=== PATIENT | male | born 1980 | race African-American/Black ===

== ENCOUNTER 2020-08-27 10:45 | Emergency (ER) | payer MEDICAID, OTHER ==
[~2020-08-27] VITALS: Ht 177.8 cm; Wt 81.6 kg
[2020-08-27 10:50] VITALS: BP 150/100
[2020-08-27] MEDS ORDERED: SODIUM CHLORIDE 0.9% 1,000 ML IV ONE (11:00)
== END 2020-08-27 11:17 | disposition left against medical advice (07) ==
LOC: EDBD 10:45 → ER 10:45
DX: R10.84 Generalized abdominal pain (principal); F17.210 Nicotine dependence, cigarettes, uncomplicated

== ENCOUNTER 2020-08-28 10:10 | Emergency (ER) | payer MEDICAID ==
[~2020-08-28] VITALS: Ht 182.9 cm; Wt 77.1 kg
[2020-08-28 10:13] VITALS: BP 124/91
[2020-08-28 11:31] LABS: Albumin 3.5 g/dL (3.4-5.0); Calcium 8.3 mg/dL (8.5-10.1); Potassium 3.7 mmol/L (3.5-5.1)
[2020-08-28 11:34] LABS: BUN/Creatinine Ratio 12.5; Basophils # (auto) 0 10 ^3/uL (0-0.2); Basophils % (auto) 0.7 % (0.0-2.0); Bilirubin, Total 0.3 mg/dL (0.2-1.0); Eosinophils # (auto) 0.1 10 ^3/uL (0-0.8); Eosinophils % (auto) 1.2 % (0.0-7.0); Hematocrit 44.3 % (41.0-53.0); Hemoglobin 15.1 g/dL (13.5-17.5); Lymphocytes # (auto) 1.2 10 ^3/uL (0.4-5.4); Lymphocytes % (auto) 22.5 % (10.0-50.0); Mean Corpuscular Hemoglobin 33.9 pg (28.0-32.0); Mean Corpuscular Hgb Conc. 34.1 g/dL (32.0-36.0); Mean Corpuscular Volume 99.4 fL (80.0-100.0); Monocytes # (auto) 0.4 10 ^3/uL (0-1.3); Monocytes % (auto) 6.9 % (0.0-12.0); Neutrophils # (auto) 3.8 10 ^3/uL (1.6-8.6); Neutrophils % (auto) 68.7 % (37.0-80.0); Nucleated Red Blood Cells % 0.1 %; Red Blood Cells 4.46 10^6/uL (4.5-5.90); Red Cell Distribution Width 13.3 % (11.8-14.3); Total Protein 7.1 g/dL (6.4-8.2); White Blood Cell 5.5 10^3/uL (4.4-10.8)
== END 2020-08-28 16:30 | disposition home or self-care (01) ==
LOC: ER 10:10
DX: K59.00 Constipation, unspecified (principal); F17.210 Nicotine dependence, cigarettes, uncomplicated
CPT/HCPCS: 36415; 74176; 80053; 83690; 85025

== ENCOUNTER 2021-05-13 05:29 | Emergency (ER) | payer MEDICAID ==
[~2021-05-13] VITALS: Ht 185.4 cm; Wt 86.2 kg
[2021-05-13 05:29] VITALS: BP 138/94
[2021-05-13] MEDS ORDERED: IBUP800T27 PO (21:06)
[2021-05-13] MEDS ORDERED: AZITTAB PO (21:06)
== END 2021-05-13 06:53 | disposition left against medical advice (07) ==
LOC: ER 05:29
DX: J02.9 Acute pharyngitis, unspecified (principal); Z53.21 Procedure and treatment not carried out due to patient leaving prior to being seen by health care provider

== ENCOUNTER 2021-05-13 18:12 | Emergency (ER) | payer MEDICAID ==
[~2021-05-13] VITALS: Ht 185.4 cm; Wt 86.2 kg
[2021-05-13 20:03] VITALS: BP 124/82
[2021-05-13] MEDS ORDERED: IBUPROFEN 600 MG TAB PO ONE (20:30)
[2021-05-13] MEDS ORDERED: diphenhdrAMINE HCL 25 MG CAP PO ONE (20:30)
[2021-05-13] MEDS ORDERED: IBUP800T27 PO (21:06)
[2021-05-13] MEDS ORDERED: AZITTAB PO (21:06)
== END 2021-05-13 21:22 | disposition home or self-care (01) ==
LOC: ER 18:14
DX: J32.9 Chronic sinusitis, unspecified (principal); F17.210 Nicotine dependence, cigarettes, uncomplicated; Z79.1 Long term (current) use of non-steroidal anti-inflammatories (NSAID); Z79.2 Long term (current) use of antibiotics; Z20.822 Contact with and (suspected) exposure to COVID-19
CPT/HCPCS: 36415; 87426

== ENCOUNTER 2021-12-01 00:39 | Emergency (ER) | payer MEDICAID ==
[~2021-12-01] VITALS: Ht 185.4 cm; Wt 81.0 kg
[~2021-12-01 00:39] MED LIST: AZITTAB PO; IBUP800T27 PO
[2021-12-01] MEDS ORDERED: AZITTAB PO (02:01)
[2021-12-01] MEDS ORDERED: PROM1SOL4 PO (02:01)
[2021-12-01] MEDS ORDERED: MONT-8 PO (02:01)
[2021-12-01 02:59] VITALS: BP 121/88
== END 2021-12-01 03:04 | disposition home or self-care (01) ==
LOC: ER 00:39
DX: J02.9 Acute pharyngitis, unspecified (principal); F17.210 Nicotine dependence, cigarettes, uncomplicated; Z59.00 Homelessness unspecified; Z79.1 Long term (current) use of non-steroidal anti-inflammatories (NSAID); Z79.2 Long term (current) use of antibiotics

== ENCOUNTER 2021-12-08 18:52 | Emergency (ER) | payer MEDICAID ==
[~2021-12-08] VITALS: Ht 185.4 cm; Wt 81.7 kg
[~2021-12-08 18:52] MED LIST changes: +MONT-8 PO; +PROM1SOL4 PO
[2021-12-08 19:54] VITALS: BP 140/92
== END 2021-12-09 02:36 | disposition left against medical advice (07) ==
LOC: ER 18:52
DX: R05.9 Cough, unspecified (principal); Z53.21 Procedure and treatment not carried out due to patient leaving prior to being seen by health care provider; Z20.822 Contact with and (suspected) exposure to COVID-19
CPT/HCPCS: 36415

== ENCOUNTER 2021-12-16 20:20 | Emergency (ER) | payer MEDICAID ==
[~2021-12-16] VITALS: Ht 185.4 cm; Wt 75.0 kg
[2021-12-17 02:51] VITALS: BP 145/91
== END 2021-12-17 05:20 | disposition left against medical advice (07) ==
LOC: ER 20:24
DX: M25.571 Pain in right ankle and joints of right foot (principal); Z53.21 Procedure and treatment not carried out due to patient leaving prior to being seen by health care provider

== ENCOUNTER → 2021-12-29 | Emergency (ER) | payer MEDICAID ==
[~2021-12-29] VITALS: Ht 185.4 cm; Wt 88.0 kg
[2021-12-29 18:17] VITALS: BP 140/90
== END | disposition left against medical advice (07) ==
LOC: ER 17:57
DX: M25.571 Pain in right ankle and joints of right foot (principal); Z53.21 Procedure and treatment not carried out due to patient leaving prior to being seen by health care provider
CPT/HCPCS: 73610

== ENCOUNTER → 2021-12-30 | Emergency (ER) | payer MEDICAID ==
[~2021-12-30] VITALS: Ht 185.4 cm; Wt 81.8 kg
[2021-12-31 00:04] VITALS: BP 130/90
== END | disposition left against medical advice (07) ==
LOC: ER 22:19
DX: M25.571 Pain in right ankle and joints of right foot (principal); Z53.21 Procedure and treatment not carried out due to patient leaving prior to being seen by health care provider

== ENCOUNTER → 2022-01-11 | Emergency (ER) | payer MEDICAID ==
[~2022-01-11] VITALS: Ht 185.4 cm; Wt 75.0 kg
[~2022-01-11] MED LIST changes: +ALBUAER3 IN; +AMOX500T86 PO; +AMOXICILLIN/CLAVULAN 500 MG TAB PO ONE; +PRED20TA2 PO
[2022-01-11 21:02] VITALS: BP 137/86
== END | disposition home or self-care (01) ==
LOC: ER 20:16
DX: J32.9 Chronic sinusitis, unspecified (principal); F17.210 Nicotine dependence, cigarettes, uncomplicated; Z79.2 Long term (current) use of antibiotics; Z79.1 Long term (current) use of non-steroidal anti-inflammatories (NSAID); Z79.899 Other long term (current) drug therapy

== ENCOUNTER 2022-03-14 00:40 | Emergency (ER) | payer MEDICAID ==
[~2022-03-14] VITALS: Ht 185.4 cm; Wt 82.0 kg
[~2022-03-14 00:40] MED LIST changes: -AMOXICILLIN/CLAVULAN 500 MG TAB PO ONE
[2022-03-14 01:03] VITALS: BP 130/97
[2022-03-14] MEDS ORDERED: AMOX-277 PO (01:26)
== END 2022-03-14 01:45 | disposition home or self-care (01) ==
LOC: ER 00:41
DX: J06.9 Acute upper respiratory infection, unspecified (principal); F17.210 Nicotine dependence, cigarettes, uncomplicated; F12.90 Cannabis use, unspecified, uncomplicated; Z59.00 Homelessness unspecified; Z20.822 Contact with and (suspected) exposure to COVID-19
CPT/HCPCS: 36415; 87426; 87804

== ENCOUNTER 2023-06-19 01:55 | Emergency (ER) | payer SELFPAY ==
[~2023-06-19] VITALS: Ht 177.8 cm; Wt 91.0 kg
[~2023-06-19 01:55] MED LIST changes: +AMOX875T4 PO; +IBUP-1456 PO; -IBUP800T27 PO
[2023-06-19 02:13] VITALS: TEMP 98.1
[2023-06-19 02:24] VITALS: PULSE 90; RESP 14; O2SAT 96
[2023-06-19 03:57] VITALS: BP 114/82; PULSE 91; RESP 17; O2SAT 97
== END 2023-06-19 03:58 | disposition home or self-care (01) ==
LOC: EDUNIT# 01:55 → EDBD 01:55 → ER 01:55
DX: S00.03XA Contusion of scalp, initial encounter (principal); F17.210 Nicotine dependence, cigarettes, uncomplicated; F15.90 Other stimulant use, unspecified, uncomplicated; Z59.00 Homelessness unspecified; Z79.899 Other long term (current) drug therapy; W22.8XXA Striking against or struck by other objects, initial encounter; Y93.89 Activity, other specified; Y92.89 Other specified places as the place of occurrence of the external cause; Y99.8 Other external cause status
CPT/HCPCS: 70450

== ENCOUNTER 2024-04-20 20:28 | Emergency (ER) | payer MEDICAID ==
[~2024-04-20] VITALS: Ht 185.4 cm; Wt 83.8 kg
[2024-04-20] MEDS: KETOROLAC TROMETH 60MG/2ML VIAL IM ONE (23:14)
--- NOTE | 2024-04-21 00:54 | ED.PDOC ---
Eye-HPI HPI Comments PATIENT REPORTS HAVING A CHIPPED TOOTH AND PAIN FOR A FEW ,MONTHS, TOP RIGHT MO LAR. DENIES YOUR, CHILLS, NAUSEA, VOMITING, OR THROAT SWELLING Chief Complaint: Tooth Pain Time Seen by MD: 20:52 Primary Care Provider: NONE Reviewed Notes: Nurses Notes, Medications, Allergies Allergies: Coded Allergies: NO KNOWN ALLERGIES (Unverified , 08/27/20) Home Meds Active Scripts Ketorolac Tromethamine (Ketorolac Tromethamine) 10 Mg Tab, 1 TAB PO TID PRN for 3 Days, #9 TAB Prov:CARLITOS NEIL 04/21/24 Gabapentin (Gabapentin) 100 Mg Cap, 1 CAP PO TID for 7 Days, #28 CAP Prov:CARLITOS NEIL 04/21/24 Amoxicillin & Pot Clavulanate (AUGMENTIN TABLET) 875 Mg Tb, 875 MG PO BID for 7 Days, #14 TAB Prov:CARLITOS NEIL 04/21/24 Amoxicillin & Pot Clavulanate (Amoxicillin/Potassium Cla) 875 Mg Tab, 1 TAB PO BID for 7 Days, #14 TAB 0 Refills Prov:EMANUEL JULIEN 03/14/22 Prednisone (Prednisone) 20 Mg Tab, 20 MG PO BID for 4 Days, #8 MG Prov:SANTIAGO MCRAE MD 01/11/22 Albuterol Sulfate (VENTOLIN MDI) 90 Mcg Ih, 90 MCG IN BID for 7 Days, #1 INH Prov:SANTIAGO MCRAE MD 01/11/22 Amoxicillin & Pot Clavulanate (Augmentin) 500 Mg Tab, 1 TAB PO BID for 7 Days, #14 TAB Prov:SANTIAGO MCRAE MD 01/11/22 Azithromycin (Zithromax Z-Morgan) 250 Mg Tab, 250 MG PO DAILY, #6 TAB Prov:MATT HARRIS 12/01/21 Montelukast Sodium (MONTELUKAST SODIUM) 10 Mg Tab, 1 TAB PO DAILY PRN, #30 TAB 5 Refills Prov:MATT HARRIS 12/01/21 Promethazine-Dm (Promethazine Dm 6.25-15 mg/5Ml) 1 Douglas Douglas, 10 DOUGLAS PO TID PRN, #240 ML Prov:MATT HARRIS 12/01/21 Azithromycin (Zithromax Z-Morgan) 250 Mg Tab, 250 MG PO UD, #1 TAB 0 Refills Prov:KATARZYNA OBREGON 05/13/21 Ibuprofen (Ibuprofen) 800 Mg Tab, 400 MG PO Q8HP PRN, #30 TAB Prov:KATARZYNA OBREGON 05/13/21 Information Source: Patient Mode of Arrival: Ambulatory Past Medical History PAST MEDICAL HISTORY: Denies Surgical History: Denies all surgeries Family History Family History: Unknown Social History Smoker: Cigarettes, Less Than 1 Pack/Day Alcohol: Rarely Drugs: Marijuana Lives In: Homeless Constitutional: denies: chills, diaphoresis, fatigue, fever, malaise, sweats, weakness, others EENTM: reports: others (DENTAL PAIN); denies: blurred vision, double vision, ear bleeding, ear discharge, ear drainage, ear pain, ear ringing, eye pain, eye redness, hearing loss, mouth pain, mouth swelling, nasal discharge, nose bleeding, nose congestion, nose pain, photophobia, tearing, throat pain, throat swelling, voice changes Respiratory: denies: cough, hemoptysis, orthopnea, SOB at rest, shortness of breath, SOB with excertion, stridor, wheezing, others Cardiovascular: denies: chest pain, dizzy spells, diaphoresis, Dyspnea on exertion, edema, irregular heart beat, left arm pain, lightheadedness, palpitations, PND, syncope, others Gastrointestinal: denies: abdomen distended, abdominal pain, blood streaked bowels, constipated, diarrhea, dysphagia, difficulty swallowing, hematemesis, melena, nausea, poor appetite, poor fluid intake, rectal bleeding, rectal pain, vomiting, others Genitourinary: denies: burning, dysuria, flank pain, frequency, hematuria, incontinence, penile discharge, penile sore, pain, testicle pain, testicle swelling, urgency, others Neurological: denies: dizziness, fainting, headache, left sided numbness, left sided weakness, numbness, paresthesia, pre-existing deficit, right sided numbness, right sided weakness, seizure, speech problems, tingling, tremors, weakness, others Musculoskeletal: denies: back pain, gout, joint pain, joint swelling, muscle pain, muscle stiffness, neck pain, others Integumetry: denies: bruises, change in color, change in hair/nails, dryness, laceration, lesions, lumps, rash, wounds, others Allergic/Immunocompromised: denies: Difficulty Healing, Frequent Infections, Hives, Itching, others Hematologic/Lymphatic: denies: anemia, blood clots, easy bleeding, easy bruising, swollen glands, others Endocrine: denies: excessive hunger, excessive sweating, excessive thirst, excessive urination, flushing, intolerance to cold, intolerance to heat, unexplained weight gain, unexplained weight loss, others Psychiatric: denies: anxiety, bipolar disorder, depression, hopeless, panic disorder, schizophrenia, sleepless, suicidal, others Physical Exam General Appearance: No Apparent Distress, Normal HEENT: Pharynx Normal, TMs Normal, Other (RIGHT UPPER JAW TOOTH 17. WITH A CRACK AND MODERATE DECAY NO NOTED DRAINAGE OR VISIBLE ABSCESS FACIAL SWELLING OR NECK SWELLING ) Neck: Full Range of Motion, Non-Tender, Normal, Normal Inspection Respiratory: Chest Non-Tender, Lungs Clear, No Accessory Muscle Use, No Respiratory Distress, Normal Breath Sounds Cardiovascular: No Edema, No JVD, No Murmur, No Gallop, Normal Peripheral Pulses, Regular Rate/Rhythm Breast Exam: Deferred Gastrointestinal: No Organomegaly, Non Tender, No Pulsatile Mass, Normal Bowel Sounds, Soft Genitalia: Deferred Pelvic: Deferred Rectal: Deferred Extremities: Normal capillary refill, Normal inspection, Normal range of motion, Non-tender, No pedal edema Musculoskeletal : Apperance: Normal Neurologic: Alert, career services representative II-XII nml as Tested, No Motor Deficits, Normal Affect, Normal Mood, No Sensory Deficits Cerebellar Function: Normal Reflexes: Normal Skin: Dry, Normal Color, Warm Lymphatic: No Adenopathy Was a procedure done? Was a procedure done?: No EENT DIFF Eye: N/A Sore Throat: Colby's Angina, Peritonsillar Abscess, Peritonsillar Cellulitis X-Ray, Labs, Meds, VS Vital Signs Date Time Temp Pulse Resp B/P (MAP) Pulse Ox O2 Delivery O2 Flow Rate FiO2 04/21/24 01:00 97.6 85 18 123/81 (95) 98 97.6 04/21/24 01:00 85 18 98 Room Air 04/20/24 21:41 97.6 74 16 126/89 (101) 96 04/20/24 21:41 74 16 96 Room Air 0 Current Medications Medications (Trade) Dose Ordered Sig/Nanci Route Start Time Stop Time Status Last Admin Ibuprofen (Motrin Tablet) 600 mg ONCE ONCE PO 04/21/24 01:00 04/21/24 01:01 DC 04/21/24 01:23 X-Ray, Labs, Meds, VS Comment PATIENT GIVEN PERCOCET 10 MG P.O., AND MOTRIN 600 MG P.O. REPORTS IMPROVEMENT IN PAIN SYMPTOMS REQUESTING DISCHARGE AT THIS TIME EXPOSURE SENSITIVE TO COLD AND HEAT AND WE WILL TRIAL GABAPENTIN 100 MG T.I.D., IBUPROFEN 800 MG T.I.D. AND AUGMENTIN TWICE DAILY X7 DAYS ADVISED HIM TO CALL DENTAL AND SCHEDULE AN APPOINTMENT FOR COMPLETE RESOLUTION. ER RETURN PRECAUTIONS GIVEN PATIENT INDICATES UNDERSTANDING AND AGREES WITH DISCHARGE PLAN OF CARE. Time of 1ST Reevaluation: 00:50 Reevaluation 1ST: Improved Patient Education/Counseling: Diagnosis, Treatment, Prognosis, Need For Follow Up Family Education/Counseling: No Family Present Departure 1 Departure Time of Disposition: 00:55 Impression: Primary Impression: Dental infection Disposition: HOME / SELF CARE / HOMELESS Condition: Stable e-Prescriptions Ketorolac Tromethamine (Ketorolac Tromethamine) 10 Mg Tab 1 TAB PO TID PRN for 3 Days, #9 TAB Prov: CARLITOS NEIL 04/21/24 Gabapentin (Gabapentin) 100 Mg Cap 1 CAP PO TID for 7 Days, #28 CAP Prov: CARLITOS NEIL 04/21/24 Amoxicillin & Pot Clavulanate (AUGMENTIN TABLET) 875 Mg Tb 875 MG PO BID for 7 Days, #14 TAB Prov: CARLITOS NEIL 04/21/24 Discharged With: Friend Critical Care Note Critical Care Time?: No Stability Stability form required: No CARLITOS NEIL Apr 21, 2024 00:54
[2024-04-21] MEDS ORDERED: AUG875T PO (00:58)
[2024-04-21] MEDS ORDERED: KETO10TA PO (00:58)
[2024-04-21] MEDS ORDERED: GABA-1308 PO (00:58)
[2024-04-21 01:00] VITALS: BP 123/81; PULSE 85; RESP 18; TEMP 97.6; O2SAT 98
[2024-04-21] MEDS: OXYCODONE W/ ACETAMINOPHEN 5/325MG TABLET PO ONE (01:00)
[2024-04-21] MEDS: IBUPROFEN 600 MG TAB PO ONE (01:23)
== END 2024-04-21 01:34 | disposition home or self-care (01) ==
LOC: ER 20:28
DX: K04.7 Periapical abscess without sinus (principal); F17.210 Nicotine dependence, cigarettes, uncomplicated; Z59.00 Homelessness unspecified; Z79.899 Other long term (current) drug therapy

== ENCOUNTER 2024-05-14 21:29 | Emergency (ER) | payer MEDICAID ==
[~2024-05-14] VITALS: Ht 185.4 cm; Wt 83.0 kg
[2024-05-14 21:37] VITALS: BP 146/87; PULSE 101; RESP 17; TEMP 98.2; O2SAT 98
[2024-05-14] MEDS ORDERED: IBUP-1456 PO (22:25)
[2024-05-14] MEDS ORDERED: CLIN1CAP70 PO (22:25)
--- NOTE | 2024-05-14 22:25 | ED.PDOC ---
Eye-HPI HPI Comments 43 YEAR OLD MALE PRESENTS TO ER WITH COMPLAINTS OF TOOTHACHE X 3 MONTHS. PATIENT REPORTS HE HAS BEEN EXPERIENCING INTERMITTENT LEFT UPPER TOOTHACHE X 3 MONTHS THAT GOT WORSE X1 MONTH. HE RATES HIS CURRENT LEFT UPPER TOOTHACHE PAIN AN 8/10 WITHOUT RADIATION. DENIES USE OF MEDICATIONS FOR CURRENT SYMPTOMS. PATIENT STATES HE WAS SUPPOSED TO FOLLOW UP WITH A DENTIST LAST SUNDAY BUT MISSED HIS APPOINTMENT AND IS GOING TO CONTACT HIS DENTIST AGAIN THIS WEEK FOR FOLLOW UP. DENIES FEVER, BODY ACHES, CHILLS, HEADACHE, FACIAL SWELLING OR ANY FURTHER SYMPTOMS/COMPLAINTS Chief Complaint: Tooth Pain Time Seen by MD: 21:42 Primary Care Provider: UNKNOWN Reviewed Notes: Nurses Notes, Medications, Allergies Allergies: Coded Allergies: NO KNOWN ALLERGIES (Unverified , 08/27/20) Home Meds Active Scripts Ibuprofen (Ibuprofen) 800 Mg Tab, 1 TAB PO TID PRN, #30 TAB 0 Refills Prov:EMANUEL JULIEN 05/14/24 Clindamycin Hcl (Clindamycin Hcl) 300 Mg Cap, 300 MG PO QID for 7 Days, #28 CAP 0 Refills Prov:EMANUEL JULIEN 05/14/24 Amoxicillin & Pot Clavulanate (Amoxicillin/Potassium Cla) 875 Mg Tab, 1 TAB PO BID for 7 Days, #14 TAB 0 Refills Prov:EMANUEL JULIEN 03/14/22 Prednisone (Prednisone) 20 Mg Tab, 20 MG PO BID for 4 Days, #8 MG Prov:SANTIAGO MCRAE MD 01/11/22 Albuterol Sulfate (VENTOLIN MDI) 90 Mcg Ih, 90 MCG IN BID for 7 Days, #1 INH Prov:SANTIAGO MCRAE MD 01/11/22 Amoxicillin & Pot Clavulanate (Augmentin) 500 Mg Tab, 1 TAB PO BID for 7 Days, #14 TAB Prov:SANTIAGO MCRAE MD 01/11/22 Azithromycin (Zithromax Z-Morgan) 250 Mg Tab, 250 MG PO DAILY, #6 TAB Prov:MATT HARRIS 12/01/21 Montelukast Sodium (MONTELUKAST SODIUM) 10 Mg Tab, 1 TAB PO DAILY PRN, #30 TAB 5 Refills Prov:MATT HARRIS 12/01/21 Promethazine-Dm (Promethazine Dm 6.25-15 mg/5Ml) 1 Douglas Douglas, 10 DOUGLAS PO TID PRN, #240 ML Prov:MATT HARRIS 12/01/21 Azithromycin (Zithromax Z-Morgan) 250 Mg Tab, 250 MG PO UD, #1 TAB 0 Refills Prov:KATARZYNA OBREGON 05/13/21 Ibuprofen (Ibuprofen) 800 Mg Tab, 400 MG PO Q8HP PRN, #30 TAB Prov:KATARZYNA OBREGON 05/13/21 Information Source: Patient Mode of Arrival: Ambulatory Past Medical History PAST MEDICAL HISTORY: Denies Surgical History: Denies all surgeries Family History Family History: Unknown Social History Smoker: Cigarettes, Less Than 1 Pack/Day Alcohol: Rarely Drugs: Marijuana Lives In: Home Constitutional: denies: chills, diaphoresis, fatigue, fever, malaise, sweats, weakness, others EENTM: reports: others ( STATED IN HPI) Respiratory: denies: cough, hemoptysis, orthopnea, SOB at rest, shortness of breath, SOB with excertion, stridor, wheezing, others Cardiovascular: denies: chest pain, dizzy spells, diaphoresis, Dyspnea on exertion, edema, irregular heart beat, left arm pain, lightheadedness, palpitations, PND, syncope, others Gastrointestinal: denies: abdomen distended, abdominal pain, blood streaked bowels, constipated, diarrhea, dysphagia, difficulty swallowing, hematemesis, melena, nausea, poor appetite, poor fluid intake, rectal bleeding, rectal pain, vomiting, others Genitourinary: denies: burning, dysuria, flank pain, frequency, hematuria, incontinence, penile discharge, penile sore, pain, testicle pain, testicle swelling, urgency, others Neurological: denies: dizziness, fainting, headache, left sided numbness, left sided weakness, numbness, paresthesia, pre-existing deficit, right sided numbness, right sided weakness, seizure, speech problems, tingling, tremors, weakness, others Musculoskeletal: denies: back pain, gout, joint pain, joint swelling, muscle pain, muscle stiffness, neck pain, others Integumetry: denies: bruises, change in color, change in hair/nails, dryness, laceration, lesions, lumps, rash, wounds, others Allergic/Immunocompromised: denies: Difficulty Healing, Frequent Infections, Hives, Itching, others Hematologic/Lymphatic: denies: anemia, blood clots, easy bleeding, easy bruising, swollen glands, others Endocrine: denies: excessive hunger, excessive sweating, excessive thirst, excessive urination, flushing, intolerance to cold, intolerance to heat, une xplained weight gain, unexplained weight loss, others Psychiatric: denies: anxiety, bipolar disorder, depression, hopeless, panic disorder, schizophrenia, sleepless, suicidal, others Physical Exam General Appearance: No Apparent Distress HEENT: PERRL/EOMI, Other (BROKEN LEFT UPPER TOOTH 24 AND 25 NOTED WITH MILD GUM SWELLING/ERYTHEMA NOTED WITHOUT BLEEDING/DRAINAGE. OVERALL VERY POOR DENTAL HYGIENE NOTED. NO FACIAL SWELLING/SKIN CHANGES NOTED) Neck: Full Range of Motion, Non-Tender, Normal Respiratory: Chest Non-Tender, Lungs Clear, No Accessory Muscle Use, No Respiratory Distress, Normal Breath Sounds Cardiovascular: No Murmur, No Gallop, Regular Rate/Rhythm Breast Exam: Deferred Gastrointestinal: NOT DONE Genitalia: Deferred Pelvic: Deferred Rectal: Deferred Extremities: Normal capillary refill, Normal range of motion Neurologic: Alert, No Motor Deficits, Normal Affect, Normal Mood, No Sensory Deficits Cerebellar Function: Normal Reflexes: Normal Skin: Dry, Normal Color, Warm Lymphatic: No Adenopathy Was a procedure done? Was a procedure done?: No Sedation Sedation?: No EENT DIFF Eye: N/A Mouth: Thrush, Other (DENTAL ABSCESS, FELISA'S ANGINA) X-Ray, Labs, Meds, VS Vital Signs Date Time Temp Pulse Resp B/P (MAP) Pulse Ox O2 Delivery O2 Flow Rate FiO2 05/14/24 21:37 98.2 101 17 146/87 (106) 98 HURRICANE SPRAY ORDERED, PATIENT EDUCATED ON PROPER USE/DOSAGE SMOKING CESSATION DISCUSSED AND ADVISED PREVIOUS CHART VISIT REVIEWED ADVISED TO FOLLOW UP WITH PCP AND DENTIST IN 1-2 DAYS PATIENT VERBALIZED UNDERSTANDING AND AGREEABLE WITH CURRENT PLAN OF CARE ADVISED TO RETURN TO ER IMMEDIATELY IF SYMPTOMS WORSEN Time of 1ST Reevaluation: 22:02 Reevaluation 1ST: N/A Patient Education/Counseling: Diagnosis, Treatment, Prognosis, Need For Follow Up Family Education/Counseling: No Family Present Departure 1 Departure Time of Disposition: 22:22 Impression: Primary Impression: Broken teeth Additional Impression: Dental infection Disposition: HOME / SELF CARE / HOMELESS Condition: Stable e-Prescriptions Ibuprofen (Ibuprofen) 800 Mg Tab 1 TAB PO TID PRN, #30 TAB 0 Refills Prov: EMANUEL JULIEN 05/14/24 Clindamycin Hcl (Clindamycin Hcl) 300 Mg Cap 300 MG PO QID for 7 Days, #28 CAP 0 Refills Prov: EMANUEL JULIEN 05/14/24 Discharged With: Self Critical Care Note Critical Care Time?: No Stability Stability form required: No Heart Score Heart Score: Heart Score Response (Comments) Value History N/A 0 EKG N/A 0 Age N/A 0 Risk Factors N/A 0 Troponin N/A 0 Total 0 EMANUEL JULIEN May 14, 2024 22:25
[2024-05-14] MEDS: BENZOCAINE (DENTAL) 20 % SPRAY 60ML MT ONE (22:36)
== END 2024-05-14 22:42 | disposition home or self-care (01) ==
LOC: ER 21:29
DX: S02.5XXA Fracture of tooth (traumatic), initial encounter for closed fracture (principal); K04.7 Periapical abscess without sinus; F12.90 Cannabis use, unspecified, uncomplicated; F17.210 Nicotine dependence, cigarettes, uncomplicated; Z79.52 Long term (current) use of systemic steroids; X58.XXXA Exposure to other specified factors, initial encounter; Y93.89 Activity, other specified; Y92.89 Other specified places as the place of occurrence of the external cause; Y99.8 Other external cause status

== ENCOUNTER 2024-08-05 22:14 | Emergency (ER) | payer MEDICAID ==
[~2024-08-05] VITALS: Ht 185.4 cm; Wt 74.2 kg
[~2024-08-05 22:14] MED LIST changes: +CLIN1CAP70 PO
[2024-08-05 23:34] VITALS: BP 117/78; PULSE 104; RESP 16; TEMP 97.5; O2SAT 97
[2024-08-05] MEDS ORDERED: AZIT-43 PO (23:44)
[2024-08-05] MEDS ORDERED: ACET500T58 PO (23:44)
[2024-08-05] MEDS ORDERED: PRED20TA2 PO (23:44)
--- NOTE | 2024-08-05 23:44 | ED.PDOC ---
History of Present Illness HPI Comments 43-year-old male presents to ER with complaints of cough x3 days. Patient reports he has been experiencing cough, congestion and sore throat x3 days. Notes that his cough was initially dry but turned productive with yellow phlegm x1 day. Denies use of medications for current symptoms and [facility] arrival, with steady gait, in no distress. Denies fever, body aches, chills, night sweats, shortness of breath, chest pain, hemoptysis or any further symptoms/complaints Chief Complaint: Flu like Time Seen by MD: 22:21 Primary Care Provider: UNKNOWN Reviewed Notes: Nurses Notes, Medications, Allergies Information Source: Patient Past Medical History PAST MEDICAL HISTORY: Denies Surgical History: PTCA Family History Family History: Unknown Social History Smoker: Cigarettes, Less Than 1 Pack/Day Alcohol: Rarely Drugs: Marijuana Lives In: Home Constitutional: No Symptoms Reported EENTM: See HPI Respiratory: See HPI Cardiovascular: No Symptoms Reported Gastrointestinal: No Symptoms Reported Genitourinary: No Symptoms Reported Neurological: No Symptoms Reported Musculoskeletal: No Symptoms Reported Integumentary: No Symptoms Reported Allergic/Immunocompromised: others (DENIES) Hematologic/Lymphatic: No Symptoms Reported Endocrine: No Symptoms Reported Psychiatric: No symptoms Reported Physical Exam General Appearance: No Apparent Distress HEENT: PERRL/EOMI, Pharyngeal Erythema (MILD TONSILLAR SWELLING/ERYTHEMA NOTED BILATERALLY WITHOUT EXUDATES. UVULA-NORMAL), TMs Normal Neck: Full Range of Motion, Non-Tender, Normal Respiratory: Chest Non-Tender, Lungs Clear, No Accessory Muscle Use, No Respiratory Distress, Normal Breath Sounds Cardiovascular: No Murmur, No Gallop, Regular Rate/Rhythm Breast Exam: Deferred Gastrointestinal: NOT DONE Genitalia: Deferred Pelvic: Deferred Rectal: Deferred Extremities: Normal capillary refill, Normal range of motion Neurologic: Alert, metal finisher II-XII nml as Tested, No Motor Deficits, Normal Affect, Normal Mood, No Sensory Deficits Cerebellar Function: Normal Reflexes: Normal Skin: Dry, Normal Color, Warm Lymphatic: No Adenopathy Was a procedure done? Was a procedure done?: No Sedation Sedation?: No Fever Differential Dx Differential Diagnosis: Pneumonia, Pulmonary Embolus, Sepsis, Pharyngitis X-Ray, Labs, Meds, VS Vital Signs Date Time Temp Pulse Resp B/P (MAP) Pulse Ox O2 Delivery O2 Flow Rate FiO2 5/27/25 23:34 97.5 104 16 117/78 (91) 97 97.5 08/05/24 23:34 Room Air* 0 21 08/05/24 22:25 97.5 104 16 117/78 (91) 97 97.5 Patient tolerating p.o. intake well and in no distress during ER visit/prior to discharge Smoking/cannabis cessation discussed and advised Advised to drink plenty of fluids Advised to follow up with PCP in 1-2 days Patient verbalized understanding and agreeable with current plan of care Advised to return to ER immediately if symptoms worsen Time of 1ST Reevaluation: 23:20 Reevaluation 1ST: N/A Patient Education/Counseling: Diagnosis, Treatment, Prognosis, Need For Follow Up Family Education/Counseling: No Family Present Departure 1 Departure Time of Disposition: 23:42 Impression: Primary Impression: Upper respiratory infection Qualified Codes: J06.9 - Acute upper respiratory infection, unspecified Disposition: HOME / SELF CARE / HOMELESS Condition: Stable e-Prescriptions Prednisone (Prednisone) 20 Mg Tab 20 MG PO BID for 5 Days, #10 TAB 0 Refills Prov: EMANUEL JULIEN 08/05/24 Acetaminophen (Acetaminophen) 500 Mg Tab 500 MG PO Q4HPRN, #30 TAB 0 Refills Prov: EMANUEL JULIEN 08/05/24 Azithromycin (Azithromycin) 250 Mg Tab 250 MG PO DAILY MDD 500 for 5 Days, #6 TAB 0 Refills 2 TABLETS ORALLY ON DAY ONE, THEN 1 TABLET ORALLY DAILY FOR 4 DAYS Prov: EMANUEL JULIEN 08/05/24 Discharged With: Self Critical Care Note Critical Care Time?: No Stability Stability form required: No Heart Score Heart Score: Heart Score Response (Comments) Value History N/A 0 EKG N/A 0 Age N/A 0 Risk Factors N/A 0 Troponin N/A 0 Total 0 EMANUEL JULIEN August 05, 2024 23:44
== END 2024-08-06 | disposition home or self-care (01) ==
LOC: ER 22:14
DX: J06.9 Acute upper respiratory infection, unspecified (principal); F12.90 Cannabis use, unspecified, uncomplicated; F17.210 Nicotine dependence, cigarettes, uncomplicated

== ENCOUNTER 2024-08-16 23:48 | Emergency (ER) | payer MEDICAID ==
[~2024-08-16] VITALS: Ht 185.4 cm; Wt 77.0 kg
[~2024-08-16 23:48] MED LIST changes: +ACET500T58 PO; +AZIT-43 PO
[2024-08-17 00:32] VITALS: BP 138/95; PULSE 97; RESP 16; TEMP 98.4; O2SAT 99
[2024-08-17] MEDS ORDERED: HYDROcodone-ACET 10/325MG TAB PO ONE (00:45)
--- NOTE | 2024-08-17 01:05 | DVH ---
EXAM: XY R KNEE 3V XRAY HISTORY: RIGHT KNEE PAIN COMPARISON: None TECHNIQUE: 3 views of the right knee were performed. FINDINGS: No acute fracture is identified about the right knee. No significant joint space narrowing. No evid ence of significant joint effusion. IMPRESSION: No acute osseous abnormalities of the right knee.
[2024-08-17] MEDS ORDERED: DICL50TA4 PO (01:43)
--- NOTE | 2024-08-17 01:44 | ED.PDOC ---
Back pain HPI HPI Comments C/C: RIGHT KNEE PAIN FOR THE PAST 2-3 DAYS. DENIES TRAUMA OR INJURY. PATIENT STATES THAT IT FEELS LIKE HIS LEG IS GOING TO GIVE OUT WHEN HE WALKS. ALL VSS Chief Complaint: Lower Extremity Time Seen by MD: 23:52 Primary Care Provider: UNKNOWN Reviewed Notes: Nurses Notes, Medications, Allergies Allergies: Coded Allergies: NO KNOWN ALLERGIES (Unverified , 08/27/20) Home Meds Active Scripts Prednisone (Prednisone) 20 Mg Tab, 20 MG PO BID for 5 Days, #10 TAB 0 Refills Prov:EMANUEL JULIEN 08/05/24 Acetaminophen (Acetaminophen) 500 Mg Tab, 500 MG PO Q4HPRN, #30 TAB 0 Refills Prov:EMANUEL JULIEN 08/05/24 Azithromycin (Azithromycin) 250 Mg Tab, 250 MG PO DAILY MDD 500 for 5 Days, #6 TAB 0 Refills 2 TABLETS ORALLY ON DAY ONE, THEN 1 TABLET ORALLY DAILY FOR 4 DAYS Prov:EMANUEL JULIEN 08/05/24 Ibuprofen (Ibuprofen) 800 Mg Tab, 1 TAB PO TID PRN, #30 TAB 0 Refills Prov:EMANUEL JULIEN 05/14/24 Clindamycin Hcl (Clindamycin Hcl) 300 Mg Cap, 300 MG PO QID for 7 Days, #28 CAP 0 Refills Prov:EMANUEL JULIEN 05/14/24 Amoxicillin & Pot Clavulanate (Amoxicillin/Potassium Cla) 875 Mg Tab, 1 TAB PO BID for 7 Days, #14 TAB 0 Refills Prov:EMANUEL JULIEN 03/14/22 Prednisone (Prednisone) 20 Mg Tab, 20 MG PO BID for 4 Days, #8 MG Prov:SANTIAGO MCRAE MD 01/11/22 Albuterol Sulfate (VENTOLIN MDI) 90 Mcg Ih, 90 MCG IN BID for 7 Days, #1 INH Prov:SANTIAGO MCRAE MD 01/11/22 Amoxicillin & Pot Clavulanate (Augmentin) 500 Mg Tab, 1 TAB PO BID for 7 Days, #14 TAB Prov:SANTIAGO MCRAE MD 01/11/22 Azithromycin (Zithromax Z-Morgan) 250 Mg Tab, 250 MG PO DAILY, #6 TAB Prov:MATT HARRIS 12/01/21 Montelukast Sodium (MONTELUKAST SODIUM) 10 Mg Tab, 1 TAB PO DAILY PRN, #30 TAB 5 Refills Prov:MATT HARRIS 12/01/21 Promethazine-Dm (Promethazine Dm 6.25-15 mg/5Ml) 1 Douglas Douglas, 10 DOUGLAS PO TID PRN, #240 ML Prov:MATT HARRIS 12/01/21 Azithromycin (Zithromax Z-Morgan) 250 Mg Tab, 250 MG PO UD, #1 TAB 0 Refills Prov:KATARZYNA OBREGON 05/13/21 Ibuprofen (Ibuprofen) 800 Mg Tab, 400 MG PO Q8HP PRN, #30 TAB Prov:KATARZYNA OBREGON 05/13/21 Information Source: Patient Mode of Arrival: Ambulatory Past Medical History PAST MEDICAL HISTORY: Denies Surgical History: PTCA Family History Family History: Unknown Social History Smoker: Cigarettes, Less Than 1 Pack/Day Alcohol: Rarely Drugs: Marijuana Lives In: Home Constitutional: denies: chills, diaphoresis, fatigue, fever, malaise, sweats, weakness, others EENTM: denies: blurred vision, double vision, ear bleeding, ear discharge, ear drainage, ear pain, ear ringing, eye pain, eye redness, hearing loss, mouth pain, mouth swelling, nasal discharge, nose bleeding, nose congestion, nose pain, photophobia, tearing, throat pain, throat swelling, voice changes, others Respiratory: denies: cough, hemoptysis, orthopnea, SOB at rest, shortness of breath, SOB with excertion, stridor, wheezing, others Cardiovascular: denies: chest pain, dizzy spells, diaphoresis, Dyspnea on exertion, edema, irregular heart beat, left arm pain, lightheadedness, palpitations, PND, syncope, others Gastrointestinal: denies: abdomen distended, abdominal pain, blood streaked bowels, constipated, diarrhea, dysphagia, difficulty swallowing, hematemesis, melena, nausea, poor appetite, poor fluid intake, rectal bleeding, rectal pain, vomiting, others Genitourinary: denies: burning, dysuria, flank pain, frequency, hematuria, i ncontinence, penile discharge, penile sore, pain, testicle pain, testicle swelling, urgency, others Neurological: denies: dizziness, fainting, headache, left sided numbness, left sided weakness, numbness, paresthesia, pre-existing deficit, right sided numbness, right sided weakness, seizure, speech problems, tingling, tremors, weakness, others Musculoskeletal: reports: joint pain, joint swelling; denies: back pain, gout, muscle pain, muscle stiffness, neck pain, others Integumetry: denies: bruises, change in color, change in hair/nails, dryness, laceration, lesions, lumps, rash, wounds, others Allergic/Immunocompromised: denies: Difficulty Healing, Frequent Infections, Hives, Itching, others Hematologic/Lymphatic: denies: anemia, blood clots, easy bleeding, easy bruising, swollen glands, others Endocrine: denies: excessive hunger, excessive sweating, excessive thirst, excessive urination, flushing, intolerance to cold, intolerance to heat, unexplained weight gain, unexplained weight loss, others Psychiatric: denies: anxiety, bipolar disorder, depression, hopeless, panic disorder, schizophrenia, sleepless, suicidal, others Physical Exam General Appearance: No Apparent Distress, Normal HEENT: Pharynx Normal Neck: Full Range of Motion, Non-Tender Respiratory: Lungs Clear, No Respiratory Distress, Normal Breath Sounds Cardiovascular: No Murmur, Normal Peripheral Pulses, Regular Rate/Rhythm Breast Exam: Deferred Gastrointestinal: Non Tender, Soft Genitalia: Deferred Pelvic: Deferred Rectal: Deferred Extremities: No calf tenderness, Normal capillary refill, Normal inspection, N ormal range of motion, Non-tender, No pedal edema Musculoskeletal : Location: Left Extremity Location: Knee (LATERAL TENDERNESS ON PALPATION NO NOTED CREPITUS, EDEMA NEGATIVE BALLOTTEMENT NEGATIVE MAGNUS AND NEGATIVE DRAWER TEST STRENGTH SENSORY MOTION INTACT POSITIVE PEDAL PULSE NOTED EXTERNAL TRAUMA) Apperance: Normal Neurologic: Alert, quality assurance supervisor trim II-XII nml as Tested, No Motor Deficits, Normal Affect, Normal Mood, No Sensory Deficits Cerebellar Function: Normal Reflexes: Normal Skin: Dry, Normal Color, Warm Lymphatic: No Adenopathy Was a procedure done? Was a procedure done?: No Back Pain Differential Dx Differential Diagnosis: Fracture, Musculoskeletal Pain X-Ray, Labs, Meds, VS Vital Signs Date Time Temp Pulse Resp B/P (MAP) Pulse Ox O2 Delivery O2 Flow Rate FiO2 08/17/24 00:32 98.4 97 16 138/95 (109) 99 98.4 X-Ray, Labs, Meds, VS Comment LEFT KNEE X-RAY SHOWS NO ACUTE FRACTURES DISLOCATIONS OR OSSEOUS LESIONS. SLIGHTLY LEFT KNEE STRAIN. ADVISED ON RICE. SCRIPT TRIAL OF DICLOFENAC ADVISED TO TAKE MEDICATIONS PRESCRIBED SIDE EFFECTS DISCUSSED. FOLLOW UP WITH YOUR PCP IN 2-3 DAYS NECESSARY CONSIDER FURTHER TESTING SUCH MRI SINCE PERSIST. ER RETURN PRECAUTIONS GIVEN PATIENT INDICATES UNDERSTANDING AND AGREES WITH DISCHARGE PLAN OF CARE. Time of 1ST Reevaluation: 00:00 Reevaluation 1ST: Unchanged Time of 2ND Reevaluation: 01:42 Reevaluation 2ND: Improved Patient Education/Counseling: Diagnosis, Treatment, Prognosis, Need For Follow Up Family Education/Counseling: No Family Present Departure 1 Departure Time of Disposition: 01:42 Impression: Primary Impression: Strain of knee and leg, left Qualified Codes: S86.912A - Strain of unspecified muscle(s) and tendon(s) at lower leg level, left leg, initial encounter Disposition: 01 HOME / SELF CARE / HOMELESS Condition: Stable e-Prescriptions Diclofenac Sodium (Diclofenac Sodium Ec) 50 Mg Tab 1 TAB PO BID PRN for 7 Days, #14 TAB Prov: CARLITOS NEIL 08/17/24 Discharged With: Self Critical Care Note Critical Care Time?: No Stability Stability form required: CARLITOS Tesfaye Aug 17, 2024 01:44
== END 2024-08-17 07:03 | disposition home or self-care (01) ==
LOC: ER 23:51
DX: S86.912A Strain of unspecified muscle(s) and tendon(s) at lower leg level, left leg, initial encounter (principal); M25.561 Pain in right knee; F17.210 Nicotine dependence, cigarettes, uncomplicated; F10.90 Alcohol use, unspecified, uncomplicated; F19.90 Other psychoactive substance use, unspecified, uncomplicated; Z79.52 Long term (current) use of systemic steroids; Z79.899 Other long term (current) drug therapy; Z98.890 Other specified postprocedural states; X58.XXXA Exposure to other specified factors, initial encounter; Y93.89 Activity, other specified; Y92.89 Other specified places as the place of occurrence of the external cause; Y99.8 Other external cause status; Y90.9 Presence of alcohol in blood, level not specified
CPT/HCPCS: 73562

== ENCOUNTER 2024-08-24 22:10 | Emergency (ER) | payer MEDICAID ==
[~2024-08-24 22:10] MED LIST changes: +DICL50TA4 PO
== END 2024-08-24 23:19 | disposition left against medical advice (07) ==
LOC: ER 22:10
DX: S89.92XA Unspecified injury of left lower leg, initial encounter (principal); Z53.21 Procedure and treatment not carried out due to patient leaving prior to being seen by health care provider; X58.XXXA Exposure to other specified factors, initial encounter; Y93.89 Activity, other specified; Y92.89 Other specified places as the place of occurrence of the external cause; Y99.8 Other external cause status

== ENCOUNTER 2024-09-19 15:41 | Emergency (ER) | payer MEDICAID ==
[~2024-09-19] VITALS: Ht 185.4 cm; Wt 77.9 kg
[~2024-09-19 15:41] MED LIST changes: -DICL50TA4 PO
--- NOTE | 2024-09-19 16:14 | ED.PDOC ---
History of Present Illness HPI Comments A 44 YEAR OLD MALE PRESENTS TO THE ED WITH COMPLAINT OF REQUEST FOR ABRASION OF PENILE REGION. PATIENT STATES HE ALSO HAS AN ABRASION ON HIS GENITAL REGION DUE TO HIS BASILIA ZIPPER AND WOULD LIKE TO HAVE THIS ABRASION EVALUATED. PATIENT DENIES FEVER, CHILLS, SHORTNESS OF BREATH, CHEST PAIN, ABDOMINAL PAIN, NAUSEA, VOMITING, HEADACHE, OR OTHER COMPLAINTS. NO OTHER SYMPTOMS OR MODIFYING FACTORS AT THIS TIME. PATIENT IS ALERT, ORIENTED X 4, AND HAS STEADY GAIT. Chief Complaint: WOUND RECHECK Time Seen by MD: 16:02 Primary Care Provider: UNKNOWN Reviewed Notes: Nurses Notes, Medications, Allergies Allergies: Coded Allergies: NO KNOWN ALLERGIES (Unverified , 08/27/20) Home Meds Active Scripts Naproxen (Naproxen) 500 Mg Tab, 500 MG PO BID, #24 TAB Prov:DION LINDSEY 09/19/24 Cephalexin Monohydrate (Cephalexin) 500 Mg Cap, 1 CAP PO QID, #28 CAP Prov:DION LINDSEY 09/19/24 Prednisone (Prednisone) 20 Mg Tab, 20 MG PO BID for 5 Days, #10 TAB 0 Refills Prov:EMANUEL JULIEN 08/05/24 Acetaminophen (Acetaminophen) 500 Mg Tab, 500 MG PO Q4HPRN, #30 TAB 0 Refills Prov:EMANUEL JULIEN 08/05/24 Azithromycin (Azithromycin) 250 Mg Tab, 250 MG PO DAILY MDD 500 for 5 Days, #6 TAB 0 Refills 2 TABLETS ORALLY ON DAY ONE, THEN 1 TABLET ORALLY DAILY FOR 4 DAYS Prov:EMANUEL JULIEN 08/05/24 Ibuprofen (Ibuprofen) 800 Mg Tab, 1 TAB PO TID PRN, #30 TAB 0 Refills Prov:EMANUEL JULIEN 05/14/24 Clindamycin Hcl (Clindamycin Hcl) 300 Mg Cap, 300 MG PO QID for 7 Days, #28 CAP 0 Refills Prov:EMANUEL JULIEN 05/14/24 Amoxicillin & Pot Clavulanate (Amoxicillin/Potassium Cla) 875 Mg Tab, 1 TAB PO BID for 7 Days, #14 TAB 0 Refills Prov:EMANUEL JULIEN 03/14/22 Prednisone (Prednisone) 20 Mg Tab, 20 MG PO BID for 4 Days, #8 MG Prov:SANTIAGO MCRAE MD 01/11/22 Albuterol Sulfate (VENTOLIN MDI) 90 Mcg Ih, 90 MCG IN BID for 7 Days, #1 INH Prov:SANTIAGO MCRAE MD 01/11/22 Amoxicillin & Pot Clavulanate (Augmentin) 500 Mg Tab, 1 TAB PO BID for 7 Days, #14 TAB Prov:SANTIAGO MCRAE MD 01/11/22 Azithromycin (Zithromax Z-Morgan) 250 Mg Tab, 250 MG PO DAILY, #6 TAB Prov:MATT HARRIS 12/01/21 Montelukast Sodium (MONTELUKAST SODIUM) 10 Mg Tab, 1 TAB PO DAILY PRN, #30 TAB 5 Refills Prov:MATT HARRIS 12/01/21 Promethazine-Dm (Promethazine Dm 6.25-15 mg/5Ml) 1 Douglas Douglas, 10 DOUGLAS PO TID PRN, #240 ML Prov:MATT HARRIS 12/01/21 Azithromycin (Zithromax Z-Morgan) 250 Mg Tab, 250 MG PO UD, #1 TAB 0 Refills Prov:KATARZYNA OBREGON 05/13/21 Ibuprofen (Ibuprofen) 800 Mg Tab, 400 MG PO Q8HP PRN, #30 TAB Prov:KATARZYNA OBREGON 05/13/21 Information Source: Patient Mode of Arrival: Ambulatory Severity: Mild Timing: Days Duration: Since onset, Days Prehospital treatment: None Medication Refill: For: Other (PENILE ABRASION) Past Medical History PAST MEDICAL HISTORY: Denies Surgical History: PTCA Family History Family History: Reviewed,noncontributory to illness Social History Smoker: Cigarettes, Less Than 1 Pack/Day Alcohol: Rarely Drugs: Marijuana Lives In: Home Constitutional: denies: chills, diaphoresis, fatigue, fever, malaise, sweats, weakness, others EENTM: denies: blurred vision, double vision, ear bleeding, ear discharge, ear drainage, ear pain, ear ringing, eye pain, eye redness, hearing loss, mouth pain, mouth swelling, nasal discharge, nose bleeding, nose congestion, nose pain, photophobia, tearing, throat pain, throat swelling, voice changes, others Respiratory: denies: cough, hemoptysis, orthopnea, SOB at rest, shortness of breath, SOB with excertion, stridor, wheezing, others Cardiovascular: denies: chest pain, dizzy spells, diaphoresis, Dyspnea on exertion, edema, irregular heart beat, left arm pain, lightheadedness, palpitations, PND, syncope, others Gastrointestinal: denies: abdomen distended, abdominal pain, blood streaked bowels, constipated, diarrhea, dysphagia, difficulty swallowing, hematemesis, melena, nausea, poor appetite, poor fluid intake, rectal bleeding, rectal pain, vomiting, others Genitourinary: reports: penile sore, others (PENILE ABRASION); denies: burning, dysuria, flank pain, frequency, hematuria, incontinence, penile discharge, pain, testicle pain, testicle swelling, urgency Neurological: denies: dizziness, fainting, headache, left sided numbness, left sided weakness, numbness, paresthesia, pre-existing deficit, right sided numbness, right sided weakness, seizure, speech problems, tingling, tremors, weakness, others Musculoskeletal: denies: back pain, gout, joint pain, joint swelling, muscle pain, muscle stiffness, neck pain, others Integumetry: denies: bruises, change in color, change in hair/nails, dryness, laceration, lesions, lumps, rash, wounds, others Allergic/Immunocompromised: denies: Difficulty Healing, Frequent Infections, Hives, Itching, others Hematologic/Lymphatic: denies: anemia, blood clots, easy bleeding, easy bruising, swollen glands, others Endocrine: denies: excessive hunger, excessive sweating, excessive thirst, excessive urination, flushing, intolerance to cold, intolerance to heat, unexplained weight gain, unexplained weight loss, others Psychiatric: denies: anxiety, bipolar disorder, depression, hopeless, panic disorder, schizophrenia, sleepless, suicidal, others All Other Systems: Reviewed and Negative Physical Exam General Appearance: No Apparent Distress, Normal HEENT: Normal ENT Inspection, PERRL/EOMI, Pharynx Normal, TMs Normal Neck: Full Range of Motion, Non-Tender, Normal, Normal Inspection Respiratory: Chest Non-Tender, Lungs Clear, No Accessory Muscle Use, No Respiratory Distress, Normal Breath Sounds Cardiovascular: No Edema, No JVD, No Murmur, No Gallop, Normal Peripheral Pulses, Regular Rate/Rhythm Breast Exam: Deferred Gastrointestinal: No Organomegaly, Non Tender, No Pulsatile Mass, Normal Bowel Sounds, Soft Genitalia: Penis (A ABRASION ON POSTERIOR PENIS, NO REDNESS AND SWELLING, NO PENILE DISCHARGE. ) Pelvic: Deferred Rectal: Deferred Extremities: No calf tenderness, Normal capillary refill, Normal inspection, Normal range of motion, Non-tender, No pedal edema Musculoskeletal : Apperance: Normal Neurologic: Alert, floorperson II-XII nml as Tested, No Motor Deficits, Normal Affect, Normal Mood, No Sensory Deficits Cerebellar Function: Normal Reflexes: Normal Skin: Dry, Normal Color, Warm, Wounds (A SMALL ABRASION ON POSTERIOR PENILE REGION, NO BLEEDING AND SWELLING. ) Peripheral Pulses: 2+ carotid (R), 2+ carotid (L) Lymphatic: No Adenopathy Was a procedure done? Was a procedure done?: No Differential Dx Considerations may include: PENILE ABRASION, CONTACT DERMATITIS, ATOPIC DERMATITIS X-Ray, Labs, Meds, VS Vital Signs Date Time Temp Pulse Resp B/P (MAP) Pulse Ox O2 Delivery O2 Flow Rate FiO2 09/19/24 16:16 98.4 96 18 150/90 (110) 99 98.4 X-Ray, Labs, Meds, VS Comment EXTERNAL MEDICAL RECORDS REVIEWED: [NONE] INDEPENDENT HISTORIANS: [NONE] SOCIAL DETERMINANTS OF HEALTH: [NONE] LABS ORDERED: NONE REVIEWED AND INTERPRETED RESULTS: NONE IMAGING ORDERED: NONE TREATMENTS ORDERED: NONE PROCEDURES PERFORMED: NONE CRITICAL CARE TIME: NONE I HAVE DISCUSSED THE PATIENT WITH THE ATTENDING PHYSICIAN DR. PETERS AND HE AGREES WITH THE PATIENT'S PLAN OF CARE AND DISPOSITION. BASED ON HISTORY OF PRESENT ILLNESS, AND PHYSICAL EXAM, PATIENT WILL BE DISCHARGED HOME. DISCUSSED PLAN FOR DISCHARGE HOME WITH RX [[facility]]. MEDICATION WARNINGS GIVEN. SHARED DECISION MAKING: PATIENT INSTRUCTED TO FOLLOW UP WITH PRIMARY CARE PROVIDER IN 1-2 DAYS FOR RE-EVALUATION OF SYMPTOMS. PATIENT VERBALIZES UNDERSTANDING TO RETURN TO ED FOR NEW OR WORSENING SYMPTOMS OR IF FOLLOW UP WITH PCP CANNOT BE OBTAINED. PATIENT FEELS COMFORTABLE GOING HOME AT THIS TIME. ALL QUESTIONS ADDRESSED AT TIME OF DISCHARGE. Time of 1ST Reevaluation: 16:26 Reevaluation 1ST: Improved Patient Education/Counseling: Diagnosis, Treatment, Need For Follow Up Family Education/Counseling: Diagnosis, Treatment, Need For Follow Up Medical Screening: No EMC Exist At This Time SEPSIS Sepsis Screen Vital Signs Date Time Temp Pulse Resp B/P (MAP) Pulse Ox O2 Delivery O2 Flow Rate FiO2 09/19/24 16:16 98.4 96 18 150/90 (110) 99 98.4 Departure 1 Departure Time of Disposition: 16:26 Impression: Primary Impression: Penile abrasion Qualified Codes: S30.812A - Abrasion of penis, initial encounter Disposition: HOME / SELF CARE / HOMELESS Condition: Stable Additional Instructions: FOLLOW-UP WITH PCP IN 1 TO 2 DAYS. TAKE MEDICATIONS PRESCRIBED. RETURN TO ED FOR ANY NEW OR WORSENING SYMPTOMS. e-Prescriptions Naproxen (Naproxen) 500 Mg Tab 500 MG PO BID, #24 TAB Prov: DION LINDSEY 09/19/24 Cephalexin Monohydrate (Cephalexin) 500 Mg Cap 1 CAP PO QID, #28 CAP Prov: DION LINDSEY 09/19/24 Discharged With: Self Critical Care Note Critical Care Time?: No Stability Stability form required: No I personally scribed for DION LINDSEY ([email or web address]) on 09/19/24 at 16:14. Electronically submitted by Norbert Holm ([email or web address]). DION LINDSEY Sep 19, 2024 16:14
[2024-09-19 16:16] VITALS: BP 150/90; PULSE 96; RESP 18; TEMP 98.4; O2SAT 99
[2024-09-19] MEDS ORDERED: CEPH500C PO (16:22)
[2024-09-19] MEDS ORDERED: NAPR-746 PO (16:22)
== END 2024-09-19 16:27 | disposition home or self-care (01) ==
LOC: ER 15:41
DX: S30.812A Abrasion of penis, initial encounter (principal); F17.210 Nicotine dependence, cigarettes, uncomplicated; F12.90 Cannabis use, unspecified, uncomplicated; W23.0XXA Caught, crushed, jammed, or pinched between moving objects, initial encounter; Y93.89 Activity, other specified; Y92.89 Other specified places as the place of occurrence of the external cause; Y99.8 Other external cause status